=== PATIENT | male | born 1995 | race Caucasian/White ===

== ENCOUNTER 2017-10-16 22:49 | Emergency (ER) | payer BC ==
[~2017-10-16] VITALS: Ht 182.9 cm; Wt 76.2 kg
[~2017-10-16 22:49] MED LIST: AUGMENTIN875 MG PO; COLACE100 MG PO; ENDOCET 5-3251 EACH PO; LORTAB 5-325 M1 EACH PO; MOTRIN600 MG PO; NORCO 5/3251 TABLET PO; PROTONIX40 MG PO
[2017-10-16 23:26] LABS: HEMATOCRIT 47.3 % (38.0-50.0); MCH 30.3 PG (29.0-34.0); MCHC 33.8 G/DL (30.0-36.0); MCV 89.6 FL (86-99); MEAN PLAT.VOLUME 10.3 uM^3 (9.0-12.4); PLATELET COUNT 275 K/uL (156-360); RBC DIS.WIDTH-CV 11.4 % (11.8-14.6); RED BLOOD COUNT 5.28 M/uL (4.00-5.50)
[2017-10-16 23:41] LABS: CHLORIDE 106 mEq/L (99-109); POTASSIUM 3.7 mEq/L (3.7-5.4); SODIUM 137 mEq/L (136-147)
[2017-10-16 23:43] LABS: GLUCOSE 224 mg/dL (70-99)
[2017-10-16 23:44] LABS: ANION GAP 9 MEQ/L (2-14)
[2017-10-16 23:47] LABS: GFR ESTIMATE (CALCULATED) > 59 mL/min/
[2017-10-16 23:48] LABS: UREA NITROGEN (BUN) 10 mg/dL (9-23)
[2017-10-16 23:49] LABS: CREATINE KINASE 133 IU/L (1-294); TOTAL CK 133 IU/L (1-294)
[2017-10-16 23:50] LABS: CK-MB 0.6 ng/mL (0.0-4.9)
[2017-10-17 00:10] LABS: TROP-I INTERPRETATION NEGATIVE; TROPONIN-I < 0.01 ng/mL (0.0-0.30)
[2017-10-17 01:29] LABS: ADD MIUA? NO; BILIRUBIN NEGATIVE; BLOOD NEGATIVE; COLOR STRAW ((YELLOW)); GLUCOSE (STRIP) NEGATIVE; KETONES NEGATIVE; LEUKOCYTES NEGATIVE; NITRITE NEGATIVE; PROTEIN (STRIP) NEGATIVE; SPECIFIC GRAVITY 1.004 (1.000-1.030); UROBILINOGEN 0.2 MG/DL (0.2-1.0)
[2017-10-17 01:39] LABS: AMPHETAMINE NEGATIVE (500 ng/mL); BARBITURATES NEGATIVE (200 ng/mL); BENZODIAZEPINES NEGATIVE (150 ng/mL); COCAINE NEGATIVE (150 ng/mL); METHADONE NEGATIVE (200 ng/mL); METHAMPHETAMINE NEGATIVE (500 ng/mL); OPIATES (MORPHINE) NEGATIVE (100 ng/mL); OXYCODONE NEGATIVE (100 ng/mL); PHENCYCLIDINE NEGATIVE (25 ng/mL); THC CANNABINOIDS PRESUMPTIVE POSITIVE (50 ng/mL); TRICYCLIC ANTIDEPRESSANTS NEGATIVE (300 ng/mL)
[2017-10-17 01:40] LABS: ADD MEDTOX COMMENT Y; INTERNAL CONTROLS VALID? YES; PROPOXYPHENE NEGATIVE (300 ng/mL)
[2017-10-17 02:21] VITALS: BP 122/62
== END 2017-10-17 02:23 | disposition home or self-care (01) ==
LOC: EME 22:49 → RME 22:49
PROVIDERS: Emergency Medicine; Physician Assistant
DX: R55 Syncope and collapse (principal); R07.9 Chest pain, unspecified; K21.9 Gastro-esophageal reflux disease without esophagitis; Z72.0 Tobacco use
CPT/HCPCS: 70450; 71020; 80048; 81003; 82550; 82553; 84484; 84999; 85027; 93005; 99281; 99285; J7030